=== PATIENT | male | born 1990 ===

== ENCOUNTER 2018-01-16 11:31 | Emergency (ER) | payer OTHER ==
[2018-01-16 11:43] VITALS: BMI 26.4
--- NOTE | 2018-01-16 11:58 | ED PDOC ---
Arrival/HPI - General Chief Complaint: Abnormal Skin Integrity Time Seen by Provider: 01/16/18 11:54 Historian: Patient - History of Present Illness Narrative History of Present Illness (Text): 01/16/18 11:56 27yo male with no past medical history who present with complaint of left index finger laceration. States he sustained the laceration when he accidentally cut his finger with a knife, while cutting carrot. He is not up to date with his TD vaccine. Denies focal weakness, paresthesia, any other complaint. Past Medical History - Provider Review Nursing Documentation Reviewed: Yes - Infectious Disease Hx of Infectious Diseases: None - Psychiatric Hx Substance Use: No Family/Social History - Physician Review Nursing Documentation Reviewed: Yes Family/Social History: Unknown Family HX Smoking Status: Never Smoked Hx Alcohol Use: No Hx Substance Use: No Allergies/Home Meds Allergies/Adverse Reactions: Allergies No Known Allergies Allergy (Verified 01/16/18 11:43) Review of Systems - Physician Review All systems were reviewed & negative as marked: Yes - Review of Systems Constitutional: Normal Eyes: Normal ENT: Normal Respiratory: Normal Cardiovascular: Normal Gastrointestinal: Normal Genitourinary Male: Normal Musculoskeletal: Normal Skin: Laceration (LEft index finger) Neurological: Normal Endocrine: Normal Hemo/Lymphatic: Normal Psychiatric: Normal Physical Exam Vital Signs Reviewed: Yes Vital Signs Temp Pulse Resp BP Pulse Ox 01/16/18 14:27 99.0 F 75 19 135/69 100 01/16/18 11:31 99.1 F 73 18 146/84 97 Temperature: Afebrile Blood Pressure: Normal Pulse: Regular Respiratory Rate: Normal Appearance: Positive for: Well-Appearing, Non-Toxic, Comfortable Pain Distress: None Mental Status: Positive for: Alert and Oriented X 3 - Systems Exam Head: Present: Atraumatic, Normocephalic Pupils: Present: PERRL Extroacular Muscles: Present: EOMI Conjunctiva: Present: Normal Mouth: Present: Moist Mucous Membranes Neck: Present: Normal Range of Motion Respiratory/Chest: Present: Clear to Auscultation, Good Air Exchange. No: Respiratory Distress, Accessory Muscle Use Cardiovascular: Present: Regular Rate and Rhythm, Normal S1, S2. No: Murmurs Abdomen: No: Tenderness, Distention, Peritoneal Signs Back: Present: Normal Inspection Upper Extremity: Present: Normal Inspection. No: Cyanosis, Edema Lower Extremity: Present: Normal Inspection. No: Edema Neurological: Present: GCS=15, CN II-XII Intact, Speech Normal Skin: Present: Warm, Dry, Normal Color, Laceration (2.0cm curvilinear laceration from lateral left distal index finger to the finger). No: Rashes Psychiatric: Present: Alert, Oriented x 3, Normal Insight, Normal Concentration Medical Decision Making ED Course and Treatment: 01/16/18 19:42 Pt's wound was irrigated, anesthetized and approximated with 6 interrupted sutures. TD booster update Abx given for prophylaxis He was NVI. Had FROM. Case was Dw Dr. Rios and he states pt can follow up with him. PT was strongly advised to follow up with the hand specialist. Advised to return to emergency department for redness, purulent discharge or if he can't see the specialist or any Doctor. - Medication Orders Current Medication Orders: Discontinued Medications Acetaminophen (Tylenol 325mg Tab) 650 mg PO STAT STA Stop: 01/16/18 13:17 Last Admin: 01/16/18 13:25 Dose: 650 mg MAR Pain/Vitals Document 01/16/18 13:25 OCS (Rec: 01/16/18 13:25 OCS [id number]) Pain Reassessment Is This A Pain ReAssessment? No Sleep Is patient sleeping during reassessment? No Presence of Pain Presence of Pain Yes Pain Scale Used Pain Scale Used Numeric Location Left, Right or Bilateral Left Pain Location Body Site Finger Description Constant Intensity 5 Scale Used Numeric Aggravating Factors ADL's Cephalexin Monohydrate (Keflex) 500 mg PO STAT STA PRN Reason: Protocol Stop: 01/16/18 13:16 Last Admin: 01/16/18 13:25 Dose: 500 mg Tetanus/Reduced Diphtheria/Acell Pertussis (Boostrix Vaccine Inj) 0.5 ml IM .ONCE ONE Stop: 01/16/18 13:16 Last Admin: 01/16/18 13:25 Dose: 0.5 ml Immunization Registry Document 01/16/18 13:25 OCS (Rec: 01/16/18 13:25 OCS [id number]) Immunization Registry Consent Date 01/16/18 Procedure: Wound Repair - Consent Obtained Consent obtained: Verbal - Performed by Performed by: Mid-level Provider - Indications Indication(s):: Laceration - Location Finger:: Left, Index Shape:: Curvilinear Dimensions Length cm: 2.0 - Anesthetic Technique Anesthetic Technique: Local Local/Regional Anesthetic:: Lidocaine 1% (5) - Debris Debris:: None - Irrigated Irrigated with ml of normal saline: 50 - Complexity Complexity:: Intermediate (2 layer) - Muscle repiar layer closed with Muscle repair layer closed with:: # (6), Size (5), Type (nylon), Technique ( interrupted), Wound well approximated, Abx ointment applied, Dressing applied, Tetanus ordered - Patient tolerated procedure Patient Tolerated Procedure:: Well Disposition/Present on Arrival - Present on Arrival Any Indicators Present on Arrival: No History of DVT/PE: No History of Uncontrolled Diabetes: No Urinary Catheter: No History of Decub. Ulcer: No History Surgical Site Infection Following: None - Disposition Have Diagnosis and Disposition been Completed?: Yes Diagnosis: Laceration Disposition: HOME/ ROUTINE Disposition Time: 13:20 Patient Plan: Discharge Condition: STABLE Discharge Instructions (ExitCare): Common Finger Injuries (DC) Additional Instructions: Keep wound clean and dry Follow up with your Doctor in 7days for suture removal Return to emergency department in 2days for wound care Prescriptions: Cephalexin [Keflex] 500 mg PO TID #21 capsule Referrals: [facility] [place] - Follow up with primary Gabriel Hanks MD [Staff Provider] - Follow up with primary Forms: [employer] (Portuguese)
[2018-01-16] MEDS: TDAP Vaccine 0.5 mL Syr IM ONE (13:25)
[2018-01-16 14:36] VITALS: BP 135/69; PULSE 75; RESP 19; TEMP 99; O2SAT 100
== END 2018-01-16 14:27 | disposition home or self-care (01) ==
LOC: ED 11:31
DX: S61.211A Laceration without foreign body of left index finger without damage to nail, initial encounter (principal); W26.0XXA Contact with knife, initial encounter; Z23 Encounter for immunization